=== PATIENT | female | born 1945 | race Caucasian/White ===

== ENCOUNTER 2021-07-31 07:46 | Outpatient (CLI) | payer OTHER, MEDICARE ==
[~2021-07-31] VITALS: Ht 170.2 cm; Wt 83.0 kg
[2021-07-31 10:01] LABS: BILIRUBIN,URINE NEGATIVE (NEGATIVE); BLOOD, URINE 1+ (NEGATIVE); CLARITY/URINE CLOUDY (CLEAR); COLOR,URINE YELLOW (YELLOW); GLUCOSE,URINE NEGATIVE (NEGATIVE); KETONES,URINE NEGATIVE (NEGATIVE); LEUKOCYTE ESTERASE ,URINE 2+ (NEGATIVE); NITRITE, URINE POSITIVE (NEGATIVE); PROTEIN URINE 2+ (NEGATIVE); UROBILINOGEN,URINE 0.2 (0.2-1.0)
[2021-07-31 10:12] LABS: BASOPHILS % (AUTO) 0.3 % (0.0-2.0); EOSINOPHILS # (AUTO) 0.4 K/uL (0.0-0.4); EOSINOPHILS % (AUTO) 4.3 % (0.0-4.0); HEMATOCRIT 36.9 % (36-48); HEMOGLOBIN 12.2 g/dL (12.0-16.0); LYMPHOCYTES # (AUTO) 1.6 K/uL (1.0-5.5); LYMPHOCYTES % (AUTO) 16.6 % (20.5-51.5); MEAN CORPUSCULAR HEMOGLOBIN 28 pg (27-31); MEAN CORPUSCULAR HGB CONC 33 % (32-36); MEAN CORPUSCULAR VOLUME 84 fL (79.0-98.0); MONOCYTES # (AUTO) 0.7 K/uL (0.0-1.0); MONOCYTES % (AUTO) 6.7 % (1.7-9.3); NEUTROPHILS % (AUTO) 72.1 % (40.0-70.0); PLATELET COUNT (AUTO) 228 K/uL (130-430); RED BLOOD CELL COUNT(AUTO) 4.38 MIL/uL (4.2-6.2); RED CELL DISTRIBUTION WIDTH 13.9 % (9.0-15.0); WHITE BLOOD COUNT (AUTO) 9.7 K/uL (4.8-10.8)
[2021-07-31 10:21] LABS: BACTERIA,URINE MANY /HPF (None Seen); MUCUS,URINE 1+ /LPF (None Seen)
[2021-07-31 10:22] LABS: ALANINE AMINOTRANSFERASE 17 U/L (12-78); ALBUMIN 3.8 g/dL (3.4-4.8); ANION GAP 8 (5-15); ASPARTATE AMINOTRANSFERASE 15 U/L (10-37); CALCIUM 9.3 mg/dL (8.4-11.0); CHLORIDE 104 mmol/L (98-107); CREATININE 1.26 mg/dL (0.55-1.30); GLUCOSE 159 mg/dL (70-99); POTASSIUM 4.4 mmol/L (3.5-5.1); SODIUM SERUM 140 mmol/L (136-145); TOTAL BILIRUBIN 0.4 mg/dL (0.0-1.0); UREA NITROGEN, BLOOD 30 mg/dL (8-21)
[2021-07-31 10:28] LABS: INR 0.9 (0.8-1.2); PROTHROMBIN TIME 9.8 SECS (9.5-12.5)
== END 2021-07-31 08:00 | disposition home or self-care (01) ==
LOC: SLB 07:46 → SMU 08-02 07:46 → UNDOADMIN 08-02 07:46 → SLB 08-02 08:00 → UNDODISIN 08-02 08:00 → EDSTATUS 08-02 13:30
PROVIDERS: ATTEND Orthopaedic Surgery
DX: Z01.818 Encounter for other preprocedural examination (principal); M16.11 Unilateral primary osteoarthritis, right hip; I70.0 Atherosclerosis of aorta; Z20.822 Contact with and (suspected) exposure to COVID-19; I49.8 Other specified cardiac arrhythmias; R00.8 Other abnormalities of heart beat; R94.31 Abnormal electrocardiogram [ECG] [EKG]; Z88.0 Allergy status to penicillin; N39.0 Urinary tract infection, site not specified; Z79.899 Other long term (current) drug therapy; Z51.81 Encounter for therapeutic drug level monitoring
CPT/HCPCS: 36415; 71046; 80053; 81000; 85025; 85610; 85730; 86886; 86900; 86901; 87081; 87086; 87635; 93005; U0003

== ENCOUNTER 2021-08-23 07:34 | Inpatient (IN) | payer OTHER, MEDICARE ==
[2021-08-21 09:35] LABS: BASOPHILS % (AUTO) 0.3 % (0.0-2.0); EOSINOPHILS # (AUTO) 0.2 K/uL (0.0-0.4); EOSINOPHILS % (AUTO) 3.2 % (0.0-4.0); HEMATOCRIT 35.5 % (36-48); LYMPHOCYTES # (AUTO) 1.4 K/uL (1.0-5.5); LYMPHOCYTES % (AUTO) 18.4 % (20.5-51.5); MEAN CORPUSCULAR HEMOGLOBIN 28 pg (27-31); MEAN CORPUSCULAR HGB CONC 34 % (32-36); MEAN CORPUSCULAR VOLUME 83 fL (79.0-98.0); MONOCYTES # (AUTO) 0.5 K/uL (0.0-1.0); MONOCYTES % (AUTO) 6.9 % (1.7-9.3); NEUTROPHILS # (AUTO) 5.3 K/uL (1.8-7.7); NEUTROPHILS % (AUTO) 71.2 % (40.0-70.0); PLATELET COUNT (AUTO) 195 K/uL (130-430); RED BLOOD CELL COUNT(AUTO) 4.27 MIL/uL (4.2-6.2); RED CELL DISTRIBUTION WIDTH 14.2 % (9.0-15.0); WHITE BLOOD COUNT (AUTO) 7.5 K/uL (4.8-10.8)
[2021-08-21 10:08] LABS: BILIRUBIN,URINE NEGATIVE (NEGATIVE); BLOOD, URINE 1+ (NEGATIVE); COLOR,URINE YELLOW (YELLOW); GLUCOSE,URINE NEGATIVE (NEGATIVE); KETONES,URINE NEGATIVE (NEGATIVE); LEUKOCYTE ESTERASE ,URINE 1+ (NEGATIVE); NITRITE, URINE NEGATIVE (NEGATIVE); PROTEIN URINE 1+ (NEGATIVE); UROBILINOGEN,URINE 0.2 (0.2-1.0)
[2021-08-21 10:13] LABS: CLARITY/URINE SLIGHTLY HAZY (CLEAR)
[2021-08-21 10:35] LABS: BACTERIA,URINE RARE /HPF (None Seen); MUCUS,URINE 1+ /LPF (None Seen); RBC,URINE 0-3 /HPF (0-3); WBC,URINE 0-3 /HPF (0-3)
[2021-08-21 11:11] LABS: ALANINE AMINOTRANSFERASE 18 U/L (12-78); ALBUMIN 3.5 g/dL (3.4-4.8); ANION GAP 13 (5-15); ASPARTATE AMINOTRANSFERASE 17 U/L (10-37); CALCIUM 9.7 mg/dL (8.4-11.0); CHLORIDE 101 mmol/L (98-107); CREATININE 1.61 mg/dL (0.55-1.30); GLUCOSE 180 mg/dL (70-99); SODIUM SERUM 142 mmol/L (136-145); TOTAL BILIRUBIN 0.4 mg/dL (0.0-1.0); UREA NITROGEN, BLOOD 28 mg/dL (8-21)
[~2021-08-23] VITALS: Ht 170.2 cm; Wt 83.0 kg
[2021-08-23] MEDS ORDERED: METF-518 PO (08:28)
[2021-08-23] MEDS ORDERED: ROSU20TA2 PO (08:30)
[2021-08-23] MEDS ORDERED: LOSA50TA3 PO (08:34)
[2021-08-23] MEDS ORDERED: SSNOVOLOG SUBCUT (08:34)
[2021-08-23] MEDS ORDERED: INSU100V11 SQ (08:34)
[2021-08-23] MEDS ORDERED: OMEP20TA20 PO (08:34)
[2021-08-23] MEDS ORDERED: VITD2000 PO (08:34)
[2021-08-23] MEDS ORDERED: LEVO750T45 PO (08:38)
[2021-08-23] MEDS ORDERED: CELE100C PO (08:38)
[2021-08-23] MEDS ORDERED: SEMA7TAB2 (08:38)
[2021-08-23] MEDS ORDERED: ACETAMINOPHEN I.V. 1000 MG 100 ML IV ONE (09:09)
[2021-08-23] MEDS ORDERED: BUPIVACAINE LIPOSOME/PF 266 MG/20 ML VIAL INFIL ONE (09:09)
[2021-08-23 09:19] LABS: BILIRUBIN,URINE NEGATIVE (NEGATIVE); BLOOD, URINE 1+ (NEGATIVE); CLARITY/URINE CLEAR (CLEAR); COLOR,URINE YELLOW (YELLOW); GLUCOSE,URINE NEGATIVE (NEGATIVE); KETONES,URINE NEGATIVE (NEGATIVE); LEUKOCYTE ESTERASE ,URINE TRACE (NEGATIVE); NITRITE, URINE NEGATIVE (NEGATIVE); PROTEIN URINE TRACE (NEGATIVE); UROBILINOGEN,URINE 0.2 (0.2-1.0)
[2021-08-23 09:34] LABS: BACTERIA,URINE None Seen /HPF (None Seen)
[2021-08-23] MEDS ORDERED: KETOROLAC TROMETHAMINE 30 MG VIAL ONE (09:41)
[2021-08-23] MEDS ORDERED: TRANEXAMIC ACID 1,000 MG/10 ML VIAL ONE (09:41)
[2021-08-23] MEDS ORDERED: MORPHINE SULFATE 10MG/10ML PF AMP ONE (09:41)
[2021-08-23] MEDS ORDERED: METOPROLOL TARTRATE 5 MG/5 ML AMPUL ONE (09:41)
[2021-08-23] MEDS ORDERED: GENTAMICIN 80 mg/ NS 50 mL IVPB IV ONE (09:41)
[2021-08-23] MEDS ORDERED: LR 1,000 ML IV.SOLN IV ONE (09:41)
[2021-08-23] MEDS ORDERED: PROPOFOL 200MG/ 20ML VIAL (DIPRIVAN) IV ONE (09:41)
[2021-08-23] MEDS ORDERED: NS IRRIG SOLN 1000 ML IR ONE (09:41)
[2021-08-23] MEDS ORDERED: BUPIVACAINE /PF 0.75% 10 ML VIAL INJ ONE (09:41)
[2021-08-23] MEDS ORDERED: SUGAMMADEX SODIUM 200 MG/2 ML VIAL IV ONE (09:41)
[2021-08-23] MEDS ORDERED: DESFLURANE 15 MIN GAS INH ONE (09:41)
[2021-08-23] MEDS ORDERED: NS 100 ML BAG ONE (09:41)
[2021-08-23] MEDS ORDERED: ROCURONIUM BROMIDE 10 MG/ML (ZEMURON) ONE (09:41)
[2021-08-23] MEDS ORDERED: ONDANSETRON HCL 4 MG/2 ML VIAL ONE (09:41)
[2021-08-23] MEDS ORDERED: METOCLOPRAMIDE HCL 10 MG/2 ML VIAL IVP PRN (11:00)
[2021-08-23] MEDS ORDERED: MEPERIDINE HCL/PF 25 MG/ML DISP.SYRIN IVP PRN (11:00)
[2021-08-23] MEDS ORDERED: HYDROmorphone 1 MG/ML INJ. CARTRIDGE IVP PRN ×2 (11:00)
[2021-08-23] MEDS ORDERED: NALOXONE HCL 0.4 MG/ML AMP (NARCAN) IVP PRN ×5 (11:00→15:30)
[2021-08-23] MEDS ORDERED: LR 1,000 ML IV SCH (11:00)
[2021-08-23] MEDS ORDERED: DIPHENHYDRAMINE INJ 50 MG/ML VIAL IVP PRN ×2 (11:00→13:30)
[2021-08-23] MEDS ORDERED: ONDANSETRON HCL 4 MG/2 ML VIAL IVP PRN ×2 (11:00→15:30)
[2021-08-23] MEDS ORDERED: ACETAMINOPHEN 325 MG TABLET PO PRN ×2 (13:30→15:30)
[2021-08-23] MEDS ORDERED: DEXTROSE 50% JECT 50 ML DISP.SYRIN IVP PRN (13:45)
[2021-08-23] MEDS ORDERED: GLUCOSE (DEXTROSE) ORAL GEL -Adults PO PRN ×2 (13:45)
[2021-08-23] MEDS ORDERED: D5W 1,000 ML IV PRN ×2 (13:45)
--- NOTE | 2021-08-23 14:22 | NUR ---
CONSULT: POST OP MEDICAL MANAGEMENT DR. BELLA PAGED. DR. BELLA CALLED BACK IMMEDIATELY DR. VALENCIA
[2021-08-23 14:49] VITALS: BP_SYST 100
--- NOTE | 2021-08-23 14:49 | NUR ---
PATIENT CAME FROM OR, BEDSIDE REPORT GIVEN ALL ACRES ASSUMED.
--- NOTE | 2021-08-23 14:54 | NUR ---
Admission Note Received patient from OR, Initial Plan of Care discussed-patient verbalized understanding. Family at bedside. Oriented to room, call light, pain management and safety.
--- NOTE | 2021-08-23 15:15 | NUR ---
CONSULT: SURGERY DOING THE SURGERY RICK TORO [phone] S/W: OFFICE EXCHANGE
--- NOTE | 2021-08-23 15:24 | NUR ---
Patient denies any pain and or discomfort at this time. Patient is AOx4, Sinus, on room air, with equal chest rise and fall. Abd soft and round with hypoactive bowel sounds, ring catheter in place for strict I&O monitoring. Skin is clean, and dry. Surgical dressing in place 20G PIV to left wrist, patent with fluids infusing.
--- NOTE | 2021-08-23 15:24 | NUR ---
and daughter at bedside, all questions answered at this time.
[2021-08-23] MEDS ORDERED: LORazepam 2 MG/ML VIAL IVP PRN (15:30)
[2021-08-23] MEDS ORDERED: MORPHINE 2 MG/ML INJ. SYRINGE IVP PRN ×2 (15:30)
[2021-08-23] MEDS ORDERED: MAGNESIUM SULFATE 50 ML IV PRN (15:30)
[2021-08-23] MEDS ORDERED: ZOLPIDEM TARTRATE 5 MG TABLET PO PRN (15:30)
[2021-08-23] MEDS ORDERED: DOCUSATE SODIUM 100 MG CAPSULE PO PRN (15:30)
[2021-08-23] MEDS ORDERED: MUPIROCIN 2% TOPICAL OINTMENT 22 GM NS PRN (15:30)
[2021-08-23] MEDS ORDERED: POTASSIUM CHLORIDE 20 MEQ TAB.PRT.SR PO PRN (15:30)
--- NOTE | 2021-08-23 15:38 | NUR ---
Episode of emesis x 2, Zofran IVP given.
[2021-08-23] MEDS: CEFAZOLIN 1 GM IVPB PREMIX 50 ML IV SCH ×2 (15:54→23:04)
[2021-08-23] MEDS: INSULIN Lispro 100 UNITS/ML VIAL (humaLOG) SUBCUT SCH (15:55)
[2021-08-23 16:00] VITALS: BP_SYST 115
[2021-08-23 18:28] LABS: HEMATOCRIT 27.9 % (36-48); HEMOGLOBIN 9.1 g/dL (12.0-16.0)
--- NOTE | 2021-08-23 18:57 | NUR ---
CLOSING NOTE: REPORT GIVEN TO NOC RN, ALL CARE ENDORSED.
[2021-08-23 19:40] VITALS: BP_SYST 102
--- NOTE | 2021-08-23 19:40 | NUR ---
PM ASSESSMENT; -Pt is a/ox4, resting in bed. Pt denied any chest pain,pain,sob,or any acute distress. IV site patent, no s/s any infiltration noted. IVF LR @ 100ml/hr. Mcadams cath w/ gravity drains yellow urine output. Pt had s/p rt hip sx with drsg in place with old blood stained noted,no active bleeding noted w/ abductor pillow in place entire time. Pt is able to wiggle woody feet w/o any tingling,numbness, or pain. Discussed poc,all safety measures, pain mgmt, pt verbalized understanding. Call light w/in reach, side rails x3. All safety measures in place. Cont to monitor pt. Addendum: 08/23/21 at 214 by [employer] litigation claim representative CORRECTION- IVF IS NS @ 70ML/HR, NOT LR.
[2021-08-23] MEDS ORDERED: HEPARIN SODIUM,PORCINE 5,000 UNITS/ML VIAL SUBCUT SCH (21:00)
[2021-08-23] MEDS: DOCUSATE SODIUM 100 MG CAPSULE PO SCH (21:00)
[2021-08-23] MEDS: NACL 0.9% 1,000 ML IV SCH (21:04)
--- NOTE | 2021-08-23 22:20 | NUR ---
ROUNDS; -Pt is resting in bed. Pt denied any chest pain,pain,sob,or any acute distress. IV site patent, no s/s any infiltration noted. IVF LR @ 100ml/hr. Mcadams cath w/ gravity drains yellow urine output. Rt hip drsg cdi with old blood stained noted and abductor pillow in place. Call light w/in reach, side rails x3. All safety measures in place. Cont to monitor pt.
--- NOTE | 2021-08-23 22:25 | NUR ---
NOTES; -Pt has a Freestyle Matt implanted on left upper arm. She did her own blood sugar by scanning and it gave LU=[id number], and she gave herself 10 units Levemir subcut of left thigh of her own insulin. She stated," Dr. Call (location director) allows her to administer insulin with her own judgement.
--- NOTE | 2021-08-24 00:15 | NUR ---
ROUNDS; -Pt is resting in bed. No s/s any chest pain,pain,sob,or any acute distress noted. IV site patent, no s/s any infiltration noted. IVF LR @ 100ml/hr. Mcadams cath w/ gravity drains yellow urine output. Rt hip drsg intact with old blood stained noted and abductor pillow in place. Call light w/in reach, side rails x3. All safety measures in place. Cont to monitor pt.
[2021-08-24 01:55] VITALS: BP_SYST 94
--- NOTE | 2021-08-24 02:15 | NUR ---
ROUNDS; -Pt is asleep. No s/s any chest pain,pain,sob,or any acute distress noted. IV site patent, no s/s any infiltration noted. IVF LR @ 100ml/hr. Mcadams cath w/ gravity drains yellow urine output. Rt hip drsg intact with old blood stained noted and abductor pillow in place. Call light w/in reach, side rails x3. All safety measures in place. Cont to monitor pt.
--- NOTE | 2021-08-24 03:50 | NUR ---
ROUNDS; -Pt is asleep. No s/s any chest pain,pain,sob,or any acute distress noted. IV site patent, no s/s any infiltration noted. IVF LR @ 100ml/hr. Mcadams cath w/ gravity drains yellow urine output. abductor pillow in place btw thighs. Call light w/in reach, side rails x3. All safety measures in place. Cont to monitor pt.
[2021-08-24] MEDS: INSULIN Lispro 100 UNITS/ML VIAL (humaLOG) SUBCUT SCH ×2 (06:31→17:00)
[2021-08-24] MEDS: NACL 0.9% 1,000 ML IV SCH ×2 (06:34→21:58)
--- NOTE | 2021-08-24 06:46 | NUR ---
CLOSING NOTES; -Pt awakes, resting in bed. Pt denied any chest pain,pain,sob,or any acute distress entire shift. IV site patent, no s/s any infiltration noted. IVF NS @ 70ml/hr. Mcadams cath w/ gravity drains yellow urine output. Pt had s/p rt hip sx with drsg in place with old blood stained noted,no active bleeding noted w/ abductor pillow in place entire time. Call light w/in reach, side rails x3. All safety measures in place. Pt did her own blood sugar check from Freestyle Matt implanted on left upper arm, [id number]. Pt refused Humalog insulin until breakfast comes. She stated," I ask Dr. Matos to let her to adjust her own insulin sliding scale coverage when he makes rounds today." Will endorse to next nurse to cont care.
[2021-08-24 07:08] LABS: BASOPHILS % (AUTO) 0.1 % (0.0-2.0); EOSINOPHILS # (AUTO) 0.1 K/uL (0.0-0.4); EOSINOPHILS % (AUTO) 1.2 % (0.0-4.0); HEMOGLOBIN 7.8 g/dL (12.0-16.0); LYMPHOCYTES # (AUTO) 0.9 K/uL (1.0-5.5); LYMPHOCYTES % (AUTO) 11.1 % (20.5-51.5); MEAN CORPUSCULAR HEMOGLOBIN 28 pg (27-31); MEAN CORPUSCULAR HGB CONC 34 % (32-36); MEAN CORPUSCULAR VOLUME 83 fL (79.0-98.0); MONOCYTES # (AUTO) 0.7 K/uL (0.0-1.0); MONOCYTES % (AUTO) 8.4 % (1.7-9.3); NEUTROPHILS # (AUTO) 6.3 K/uL (1.8-7.7); NEUTROPHILS % (AUTO) 79.2 % (40.0-70.0); PLATELET COUNT (AUTO) 140 K/uL (130-430); RED BLOOD CELL COUNT(AUTO) 2.77 MIL/uL (4.2-6.2); RED CELL DISTRIBUTION WIDTH 14.4 % (9.0-15.0); WHITE BLOOD COUNT (AUTO) 7.9 K/uL (4.8-10.8)
[2021-08-24 07:29] LABS: ANION GAP 8 (5-15); CALCIUM 8.1 mg/dL (8.4-11.0); CHLORIDE 103 mmol/L (98-107); CREATININE 1.55 mg/dL (0.55-1.30); GLUCOSE 132 mg/dL (70-99); POTASSIUM 4.5 mmol/L (3.5-5.1); SODIUM SERUM 138 mmol/L (136-145); UREA NITROGEN, BLOOD 27 mg/dL (8-21)
--- NOTE | 2021-08-24 07:34 | NUR ---
OPENING NOTE: REPORT RCVD FROM OUTGOING NOC RN, ALL CARES ASSUMED. (ROYCE OJEDA)
[2021-08-24 08:00] VITALS: BP_SYST 108
[2021-08-24] MEDS: DOCUSATE SODIUM 100 MG CAPSULE PO SCH ×2 (08:04→20:37)
[2021-08-24] MEDS: LOSARTAN POTASSIUM 50 MG TABLET (COZAAR) PO SCH (08:05)
[2021-08-24] MEDS: ATORVASTATIN 20 MG TABLET PO SCH (08:05)
[2021-08-24] MEDS: ENOXAPARIN SODIUM 40 MG/0.4 ML SYRINGE SUBCUT SCH (09:44)
[2021-08-24] MEDS: ACETAMINOPHEN 325 MG TABLET PO PRN (11:26)
--- NOTE | 2021-08-24 11:26 | NUR ---
TYLENOL GIVEN FOR RIGHT HIP PAIN 06/20
[2021-08-24 12:00] VITALS: BP_SYST 109
[2021-08-24 16:00] VITALS: BP_SYST 119
[2021-08-24] MEDS: HYDROmorphone 2 MG/ML VIAL IVP PRN (18:40)
--- NOTE | 2021-08-24 18:44 | NUR ---
DILAUDID GIVEN PRN FOR 10/10 RIGHT HIP PAIN.
--- NOTE | 2021-08-24 18:51 | NUR ---
CLOSING NOTE: REPORT GIVEN TO OUT GOING NOC RN, ALL CARES ENDORSED.
[2021-08-24 19:30] VITALS: BP_SYST 99
--- NOTE | 2021-08-24 19:30 | NUR ---
PM ASSESSMENT; -Pt is a/ox4, resting in bed. Pt denied any chest pain,pain,sob,or any acute distress. VSS except low BP=99/49. IV site patent, no s/s any infiltration noted. IVF NS @ 70ml/hr. Mcadams cath w/ gravity drains yellow urine output. Pt had s/p rt hip sx with drsg in place with old blood stained noted,no active bleeding noted w/ abductor pillow in place entire time. Pt is able to wiggle woody feet w/o any tingling,numbness, or pain. Rt lower extremity swollen with pitting + 1. Discussed poc,all safety measures, pain mgmt, pt verbalized understanding. Call light w/in reach, side rails x3. All safety measures in place. Cont to monitor pt.
--- NOTE | 2021-08-24 22:00 | NUR ---
ROUNDS; -Pt awakes, resting in bed. Pt denies any chest pain,pain,sob,or any acute. Pt did own blood sugar check with Free Style Matt, LJ=[id number], she gave 10 units subcut of Levemir. IV site patent, no s/s any infiltration noted. IVF LR @ 100ml/hr. Mcadams cath w/ gravity drains yellow urine output. abductor pillow in place btw thighs. Call light w/in reach, side rails x3. All safety measures in place. Cont to monitor pt. Addendum: 08/24/21 at 2202 by [employer] heavy duty diesel mechanic CORRECTION- NS @ 70ML/HR INSTEAD LR @100ML/HR
--- NOTE | 2021-08-25 00:12 | NUR ---
ROUNDS; -Pt is asleep. No s/s any chest pain,pain,sob,or any acute distress noted. IV site patent, no s/s any infiltration noted. IVF infusing well. Mcadams cath w/ gravity drains yellow urine output. Rt hip drsg intact with old blood stained noted and abductor pillow in place. Call light w/in reach, side rails x3. All safety measures in place. Cont to monitor pt.
[2021-08-25 00:52] VITALS: BP_SYST 112
[2021-08-25] MEDS: HYDROmorphone 2 MG/ML VIAL IVP PRN (02:07)
--- NOTE | 2021-08-25 02:07 | NUR ---
ROUNDS; PAIN MGMT -Pt is c/o rt hip pain sharp 10/10,gave Dilaudid 2mg IVP for pain mgmt, DH=386/56. IV site patent, no s/s any infiltration noted. IVF infusing well. Mcadams cath w/ gravity drains yellow urine output. Rt hip drsg intact with old blood stained noted and abductor pillow in place. Call light w/in reach, side rails x3. All safety measures in place. Cont to monitor pt.
--- NOTE | 2021-08-25 04:15 | NUR ---
ROUNDS; PAIN MGMT -Pt is asleep. IV site patent, no s/s any infiltration noted. IVF infusing well. Mcadams cath w/ gravity drains yellow urine output. Rt hip drsg intact with old blood stained noted and abductor pillow in place btwn thighs. Call light w/in reach, side rails x3. All safety measures in place. Cont to monitor pt. Addendum: 08/25/21 at 0635 by [employer] bread jockey CORRECTION-JUST ROUNDS; NOT PAIN MGMT
[2021-08-25] MEDS: INSULIN Lispro 100 UNITS/ML VIAL (humaLOG) SUBCUT SCH ×2 (06:44→17:00)
--- NOTE | 2021-08-25 06:45 | NUR ---
CLOSING NOTES; -Pt is resting in bed. Pt denied any chest pain,pain,sob,or any acute distress. IV site patent, no s/s any infiltration noted. IVF infusing well. Mcadams cath w/ gravity drains yellow urine output. Pt had s/p rt hip sx with drsg in place with old blood stained noted,no active bleeding noted w/ abductor pillow in place entire time. Call light w/in reach, side rails x3. All safety measures in place. Pt will check her own blood sugar from Freestyle Matt implanted from left upper arm. Will endorse to next nurse to cont care.
[2021-08-25 07:06] LABS: BASOPHILS % (AUTO) 0.2 % (0.0-2.0); EOSINOPHILS # (AUTO) 0.1 K/uL (0.0-0.4); EOSINOPHILS % (AUTO) 1.4 % (0.0-4.0); HEMATOCRIT 23.9 % (36-48); HEMOGLOBIN 7.9 g/dL (12.0-16.0); LYMPHOCYTES # (AUTO) 1.1 K/uL (1.0-5.5); LYMPHOCYTES % (AUTO) 12.8 % (20.5-51.5); MEAN CORPUSCULAR HEMOGLOBIN 28 pg (27-31); MEAN CORPUSCULAR HGB CONC 33 % (32-36); MEAN CORPUSCULAR VOLUME 84 fL (79.0-98.0); MONOCYTES # (AUTO) 0.7 K/uL (0.0-1.0); MONOCYTES % (AUTO) 8.6 % (1.7-9.3); NEUTROPHILS # (AUTO) 6.5 K/uL (1.8-7.7); PLATELET COUNT (AUTO) 150 K/uL (130-430); RED BLOOD CELL COUNT(AUTO) 2.85 MIL/uL (4.2-6.2); RED CELL DISTRIBUTION WIDTH 14.5 % (9.0-15.0); WHITE BLOOD COUNT (AUTO) 8.4 K/uL (4.8-10.8)
[2021-08-25 07:07] LABS: ANION GAP 6 (5-15); CALCIUM 8.2 mg/dL (8.4-11.0); CHLORIDE 103 mmol/L (98-107); CREATININE 1.47 mg/dL (0.55-1.30); GLUCOSE 159 mg/dL (70-99); POTASSIUM 4.3 mmol/L (3.5-5.1); SODIUM SERUM 136 mmol/L (136-145); UREA NITROGEN, BLOOD 19 mg/dL (8-21)
--- NOTE | 2021-08-25 07:30 | NUR ---
RECEIVED PT FROM NIGHTSHIFT RN. PT A/O X4. ABLE TO MAKE NEEDS KNOWN. DENIES PAIN AT THIS TIME. NO SOB OR RESPIRATORY DISTRESS. ON RA. GRIFFITH VIA GRAVITY. L WRIST #20. NS @ 70 ML/HR. S/P R HIP REPLACEMENT. GOOD C/S/M OF BILATERAL LOWER EXTREMITY. ON BEDREST. ICE PACK PROVIDED FOR PATIENT FOR RLE. NEEDS ALL MET AT THIS TIME. SAFETY MEASURES IN PLACE. WILL CONTINUE TO MONITOR CLOSELY.
--- NOTE | 2021-08-25 07:45 | NUR ---
PT CHECKS OWN BLOOD GLUCOSE THROUGH FREESTYLE IDALMIS IMPLANTED ON ESTEVAN. BLOOD GLUCOSE READS 158 AND PT SELF INJECTED 10 UNITS OF HUMALOG. CLEARED FROM MD FOR PT TO DO OWN BLOOD SUGAR CHECK AND SELF ADMINISTER HER OWN MEDICATIONS.
[2021-08-25 08:00] VITALS: BP_SYST 130
[2021-08-25] MEDS ORDERED: ACETAMINOPHEN 325 MG TABLET PO PRN (08:00)
[2021-08-25] MEDS: ATORVASTATIN 20 MG TABLET PO SCH (09:00)
[2021-08-25] MEDS: metFORMIN HCL 500 MG TABLET PO SCH ×2 (09:00→21:00)
[2021-08-25] MEDS: DOCUSATE SODIUM 100 MG CAPSULE PO SCH ×2 (09:00→21:00)
[2021-08-25] MEDS: LOSARTAN POTASSIUM 50 MG TABLET (COZAAR) PO SCH (09:00)
[2021-08-25] MEDS: ENOXAPARIN SODIUM 40 MG/0.4 ML SYRINGE SUBCUT SCH (10:04)
[2021-08-25] MEDS: HYDROcodone/ACETAMIN 5-325 MG TAB (NORCO/ VICODIN) PO PRN ×3 (10:06→20:20)
--- NOTE | 2021-08-25 10:30 | NUR ---
PRN PAIN MED GIVEN. 9/10 PAIN, ACHING ON R HIP. PT COMPLETED 100% OF BREAKFAST. PROVIDED EXTRA ICE PACKS FOR PT. NEEDS ALL MET. SAFETY MEASURES IN PLACE.
[2021-08-25] MEDS: NACL 0.9% 1,000 ML IV SCH (10:39)
[2021-08-25 12:00] VITALS: BP_SYST 128
--- NOTE | 2021-08-25 12:30 | NUR ---
PT CHECKS OWN BLOOD GLUCOSE THROUGH FREESTYLE IDALMIS IMPLANTED ON ESTEVAN. BLOOD GLUCOSE READS 137 AND PT SELF INJECTED 10 UNITS OF HUMALOG.
[2021-08-25 16:00] VITALS: BP_SYST 109
--- NOTE | 2021-08-25 17:00 | NUR ---
PT IN NO DISTRESS. NO SOB OR RESPIRATORY DISTRESS. ON RA. 0/10 PAIN. STATES NORCO HELPS WITH THE PAIN. VSS. PT SELF CHECKS BLOOD GLUCOSE THROUGH FREESTYLE IDALMIS IMPLANTED ON ESTEVAN. BLOOD GLUCOSE READS 152 AND PT SELF INJECTED 10 UNITS OF HUMALOG. HOB ELEVATED. LINENS CHANGED. GRIFFITH VIA GRAVITY WITH YELLOW CLEAR URINE. 1200 ML OUT. RLE WITH GOOD C/S/M. COLD PACKS APPLIED TO RLE. ABDUCTION PILLOW IN PLACE. NEEDS ALL MET. SAFETY MEASURES IN PLACE. CALL LIGHT/ITEMS WITHIN REACH. HOURLY ROUNDS CONDUCTED.
--- NOTE | 2021-08-25 19:17 | NUR ---
REPORT GIVEN TO NIGHTSHIFT RN FOR CONTINUITY OF CARE.
--- NOTE | 2021-08-25 19:30 | NUR ---
Opening note Patient is awake, AOx4 resting in bed, no distress. Breathing is nonlabored, symmetrical rise and fall of chest. Skin is warm dry. IVF infusing via IV to left hand. She has ring catheter drainage bag to gravity. Incision site dressing is dry with minimal amount of dry blood noted on lower edge of dressing. SCD's on and adductor pillow in place. Bed is locked in lowest position, side rails up 3x, bed alarm on and call light w/in reach. Updated board.
[2021-08-25 20:00] VITALS: BP_SYST 117
--- NOTE | 2021-08-25 20:20 | NUR ---
Wilda Patient reporting severe pain to right hip. [place] (3-083) 2 tabs given for severe pain as ordered. Also applied ice to right hip/thigh/leg.
--- NOTE | 2021-08-25 20:25 | NUR ---
Meds Patient has two meds scheduled - Colace and Metformin. She refused Colace stating that she does not want to have a bowel movement while in bed and is concerned about pain. I provided education regarding pain meds; constipation side effect and she verbalized understanding, stating she is aware and will start taking Colace once she is up with PT. She also refused Metformin stating that she took tablet earlier with dinner.
--- NOTE | 2021-08-25 20:35 | NUR ---
Dr. Haley / ring catheter Patient was informed Ring catheter is to be removed on 2nd day post op per doctor's order. She refused and asked if she can keep Ring during night and wants to wait till morning d/t pain and frequency of bed sams use. I paged and spoke with Dr. Haley and she said it was ok to leave Ring catheter on one more night, TORB
[2021-08-26 01:07] VITALS: BP_SYST 118
[2021-08-26] MEDS: NACL 0.9% 1,000 ML IV SCH ×2 (01:33→15:42)
--- NOTE | 2021-08-26 01:36 | NUR ---
IVF, rounds IVF empty and hung new bag of Normal saline; infusing as ordered, infusing well, no sign of infiltration noted. Patient presently denies pain. She was encouraged to reposition and reports she has been moving - self positioning as tolerated. Replaced ice pack to right leg. No further needs, call light w/in reach.
--- NOTE | 2021-08-26 05:30 | NUR ---
rounds, bed bath Patient was provided w/bed bath, new gown and linens.
[2021-08-26] MEDS: HYDROcodone/ACETAMIN 5-325 MG TAB (NORCO/ VICODIN) PO PRN (05:33)
--- NOTE | 2021-08-26 05:33 | NUR ---
Wilda Patient reporting severe pain to right hip. [place] (4-129) 2 tabs given for severe pain as ordered along w/ ice packs to right hip/thigh.
[2021-08-26 06:27] LABS: BASOPHILS % (AUTO) 0.2 % (0.0-2.0); EOSINOPHILS # (AUTO) 0.2 K/uL (0.0-0.4); HEMATOCRIT 23.4 % (36-48); HEMOGLOBIN 7.8 g/dL (12.0-16.0); LYMPHOCYTES % (AUTO) 13.1 % (20.5-51.5); MEAN CORPUSCULAR HEMOGLOBIN 28 pg (27-31); MEAN CORPUSCULAR HGB CONC 33 % (32-36); MEAN CORPUSCULAR VOLUME 84 fL (79.0-98.0); MONOCYTES # (AUTO) 0.6 K/uL (0.0-1.0); MONOCYTES % (AUTO) 8.3 % (1.7-9.3); NEUTROPHILS # (AUTO) 5.6 K/uL (1.8-7.7); NEUTROPHILS % (AUTO) 76.4 % (40.0-70.0); PLATELET COUNT (AUTO) 155 K/uL (130-430); RED CELL DISTRIBUTION WIDTH 14.8 % (9.0-15.0); WHITE BLOOD COUNT (AUTO) 7.4 K/uL (4.8-10.8)
[2021-08-26 06:46] LABS: ANION GAP 9 (5-15); CALCIUM 8.3 mg/dL (8.4-11.0); CHLORIDE 102 mmol/L (98-107); CREATININE 1.38 mg/dL (0.55-1.30); GLUCOSE 159 mg/dL (70-99); POTASSIUM 3.5 mmol/L (3.5-5.1); SODIUM SERUM 136 mmol/L (136-145); UREA NITROGEN, BLOOD 17 mg/dL (8-21)
[2021-08-26] MEDS: INSULIN Lispro 100 UNITS/ML VIAL (humaLOG) SUBCUT SCH ×2 (06:59→18:26)
--- NOTE | 2021-08-26 07:02 | NUR ---
Closing note Patient is awake, AOx4 resting in bed, no distress and presently denies pain. IVF infusing via IV to left hand. She has ring catheter drainage bag to gravity. Incision site dressing remains dry with minimal amount of dry blood noted on lower edge of dressing. SCD's on and adductor pillow in place. Bed is locked in lowest position, side rails up 3x, bed alarm on and call light w/in reach. Will endorse care to day shift nurse.
[2021-08-26 08:00] VITALS: BP_SYST 115
[2021-08-26 08:28] VITALS: BP_SYST 118
[2021-08-26] MEDS: metFORMIN HCL 500 MG TABLET PO SCH ×2 (09:00→21:18)
[2021-08-26] MEDS: ATORVASTATIN 20 MG TABLET PO SCH (09:00)
[2021-08-26] MEDS: DOCUSATE SODIUM 100 MG CAPSULE PO SCH ×2 (09:00→21:18)
[2021-08-26] MEDS: LOSARTAN POTASSIUM 50 MG TABLET (COZAAR) PO SCH (09:00)
[2021-08-26] MEDS: ENOXAPARIN SODIUM 40 MG/0.4 ML SYRINGE SUBCUT SCH (09:00)
--- NOTE | 2021-08-26 09:00 | NUR ---
pt refused medications stating she had already taken her morning medications. she then showed me a week long pill box that was filled with medications. she explained that she was administering her necessary medications from home because the hospital had "screwed up". I asked her more about what she had taken and she told me metormin, losartan, vitamin d3, novalog and rybelsus. she stated that she had cleared it with the drs and other nurses. I stated that I wanted her to get the medication she need and wanted her to be safe and but all medications needed to be administered per hospital protocol. She said that it was ok and that the nurses and dr has said it was ok. I escalated this to charge nurse Kassy and accompanied her to bedside to continue discussions with the patient. While at bedside, Dr. Matos, arrived to assess patient. He spoke to her and state that he would fix her medication administration schedule making sure that the correct medications, doses, and timing from her home medication list would be administered. 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 Addendum: 08/26/21 at 1216 by [employer] [address] Dr. Matos said to keep ring in place until tomorrow after patient requested to keep ring due to high frequency urination
[2021-08-26 12:00] VITALS: BP_SYST 113
--- NOTE | 2021-08-26 12:16 | NUR ---
pt requesting insulin with lunch arrival, has not changed orders as he stated, md cai paged.
--- NOTE | 2021-08-26 12:16 | NUR ---
Discharge Planning: DCP faxed pt referral to [facility] P#[phone] DCP to follow up. Addendum: 08/26/21 at 1336 by Melissa Crenshaw DP Esther will come do a assessment on patient. Addendum: 08/26/21 at 1514 by Melissa Crenshaw DP [facility] P#[phone] accepted pt to Rm 226 DCP made CM aware.
--- NOTE | 2021-08-26 12:46 | NUR ---
Spoke to patient about her DC plan. She stated she is not feeling safe to go home w/ her daughter. She will be staying with her daughter at [address] [place], [place] [address] [address]- She would like [facility] [phone]. She has a FWW for mobility. She agreed to go to SNF for rehab. She would like to go to [facility]. I spoke to Dr Matos and requested a DC to SNF. He stated he will see the patient this PM, after PT, and decide for home vs SNF placement for the patient. I spoke w/ Shola in PT. He will see the patient for PT for the second time today, after lunch.
[2021-08-26] MEDS: ONDANSETRON 4 MG ODT TAB PO PRN (13:14)
[2021-08-26] MEDS ORDERED: LOVI40 SUBCUT (14:54)
--- NOTE | 2021-08-26 15:44 | NUR ---
Spoke to patient and her daughter. Patient is complaining of pain and nausea and Dr Matos stated she can stay in the hospital until tomorrow.
[2021-08-26 16:00] VITALS: BP_SYST 131
[2021-08-26 20:00] VITALS: BP_SYST 109
[2021-08-26] MEDS: INSULIN GLARGINE 100 UNITS/ML 10 ML VIAL SUBCUT SCH (21:27)
[2021-08-27] VITALS: BP_SYST 110
[2021-08-27] MEDS: ONDANSETRON 4 MG ODT TAB PO PRN ×2 (00:41→08:23)
[2021-08-27] MEDS: HYDROcodone/ACETAMIN 5-325 MG TAB (NORCO/ VICODIN) PO PRN ×4 (00:42→22:22)
[2021-08-27] MEDS: NACL 0.9% 1,000 ML IV SCH (06:03)
[2021-08-27 06:28] LABS: BASOPHILS % (AUTO) 0.3 % (0.0-2.0); EOSINOPHILS # (AUTO) 0.2 K/uL (0.0-0.4); EOSINOPHILS % (AUTO) 2.1 % (0.0-4.0); HEMOGLOBIN 7.3 g/dL (12.0-16.0); LYMPHOCYTES # (AUTO) 1.1 K/uL (1.0-5.5); LYMPHOCYTES % (AUTO) 14.6 % (20.5-51.5); MEAN CORPUSCULAR HEMOGLOBIN 28 pg (27-31); MEAN CORPUSCULAR HGB CONC 34 % (32-36); MEAN CORPUSCULAR VOLUME 83 fL (79.0-98.0); MONOCYTES # (AUTO) 0.7 K/uL (0.0-1.0); MONOCYTES % (AUTO) 9.5 % (1.7-9.3); NEUTROPHILS # (AUTO) 5.5 K/uL (1.8-7.7); NEUTROPHILS % (AUTO) 73.5 % (40.0-70.0); PLATELET COUNT (AUTO) 163 K/uL (130-430); RED BLOOD CELL COUNT(AUTO) 2.61 MIL/uL (4.2-6.2); RED CELL DISTRIBUTION WIDTH 14.3 % (9.0-15.0); WHITE BLOOD COUNT (AUTO) 7.5 K/uL (4.8-10.8)
[2021-08-27 06:38] LABS: ANION GAP 7 (5-15); CALCIUM 8.9 mg/dL (8.4-11.0); CHLORIDE 99 mmol/L (98-107); CREATININE 1.26 mg/dL (0.55-1.30); GLUCOSE 152 mg/dL (70-99); POTASSIUM 3.9 mmol/L (3.5-5.1); SODIUM SERUM 134 mmol/L (136-145); UREA NITROGEN, BLOOD 15 mg/dL (8-21)
[2021-08-27 07:24] LABS: HEMATOCRIT 21.6 % (36-48)
[2021-08-27 08:00] VITALS: BP_SYST 121
--- NOTE | 2021-08-27 08:00 | NUR ---
Opening Notes Patient is awake, alert and oriented x4. No resp distress noted. Breathing is even and unlabored. Pt is agitated with multiple complaints. Per patient "I need my Prilosec! And I need my insulin! I have been getting horrible service ever since I got here. Its ridiculous! Im going to get nauseated and throw up. I get dizzy and they want me to go home?! I cant even stand up. They need to do something about this catheter because I want to sit on the commode." Nurse educated patient that she will follow up with the MD. IV site on left wrist 20 gauge intact, saline lock. FC draining by gravity, yellow and clear urine. All needs met at this time. Safety and fall precautions in place. Bed in lowest position, alarm on, locked. Will continue to monitor.
[2021-08-27] MEDS: DOCUSATE SODIUM 100 MG CAPSULE PO SCH ×2 (08:11→21:06)
[2021-08-27] MEDS: ATORVASTATIN 20 MG TABLET PO SCH (08:11)
[2021-08-27] MEDS: metFORMIN HCL 500 MG TABLET PO SCH ×2 (08:12→21:00)
[2021-08-27] MEDS: LOSARTAN POTASSIUM 50 MG TABLET (COZAAR) PO SCH (08:12)
[2021-08-27] MEDS: INSULIN Lispro 100 UNITS/ML VIAL (humaLOG) SUBCUT SCH ×2 (08:13→17:55)
[2021-08-27] MEDS: ENOXAPARIN SODIUM 40 MG/0.4 ML SYRINGE SUBCUT SCH (08:14)
--- NOTE | 2021-08-27 08:30 | NUR ---
Daughter by bedside. Updated her on patient status and plan of care.
[2021-08-27 12:00] VITALS: BP_SYST 117
--- NOTE | 2021-08-27 12:00 | NUR ---
Notes Patient is awake, alert and oriented x4. No resp distress noted. Breathing is even and unlabored. Pt is being seen and examined by PHYSICAL THERAPY. Reports feeling "dizzy" upon sitting and standing. Nurse educated pt on medication: Meclizine for dizziness/vertigo. Pt initially refused request for medication but later agreed to medication. Nurse s/w Dr. Cueva and obtained new orders for Meclizine. Noted and carried out. Pt is also requesting a fleet enema. Reports no BM for 5 days. Received orders, will administer after lunch.
[2021-08-27 12:05] VITALS: BP_SYST 103
[2021-08-27] MEDS ORDERED: MECL-225 PO (12:15)
[2021-08-27] MEDS ORDERED: MECLIZINE HCL 25 MG TABLET (ANITVERT) PO ONE (12:15)
[2021-08-27] MEDS ORDERED: SODIUM PHOSPHATE,MONO-DIBASIC 133 ML ENEMA RC ONE (13:00)
[2021-08-27] MEDS ORDERED: OMEPRAZOLE Non-Formulary 20 MG CAPSULE.DR PO SCH (13:30)
[2021-08-27] MEDS ORDERED: PANTOPRAZOLE SODIUM 40 MG TAB PO ONE (13:45)
--- NOTE | 2021-08-27 15:14 | NUR ---
Spoke with patient. She is refusing to discharge to home or SNF. She stated she may leave tomorrow if she was no longer dizzy, and she may go home.
--- NOTE | 2021-08-27 16:00 | NUR ---
Notes Patient is laying in bed, resting at this time. No resp distress ntoed. Breathing is even and unlabored. Pt is c/o 5/10 right hip pain. Pt was repositioned in bed. Dressing on right hip is slightly saturated. Will continue to monitor.
--- NOTE | 2021-08-27 18:55 | NUR ---
Closing Notes Patient is awake, alert and oriented x4. Daughter by bedside. No resp distress noted. Breathing is even and unlabored, RA. Pt is denying any signs of dizziness at this time. Pt reports milf pain at this time., 08/20. IV site on left wrist 20 gauge intact, saline. Refusing IVF. FC draining by gravity, yellow and clear urine. BSC at bedside. All needs met at this time. Safety and fall precautions in place. Bed in lowest position, alarm on, locked. Will continue to monitor.
--- NOTE | 2021-08-27 19:38 | NUR ---
Opening note Patient is awake, AOx4 resting in bed, no distress. Breathing is nonlabored on room air. IV to left hand is saline locked. She has ring catheter drainage bag to gravity. Incision site dressing is dry with minimal amount of dry blood noted on edge of dressing. . Bed is locked in lowest position, side rails up, bed alarm on and call light w/in reach.
[2021-08-27 20:15] VITALS: BP_SYST 121
--- NOTE | 2021-08-27 20:58 | NUR ---
Dr. Matos rounds Dr. Matos at bedside to see patient. He informed he will be back tomorrow (noon, afternoon) to change dressing.
[2021-08-27] MEDS: MECLIZINE HCL 25 MG TABLET (ANITVERT) PO SCH (21:03)
[2021-08-27] MEDS: INSULIN GLARGINE 100 UNITS/ML 10 ML VIAL SUBCUT SCH (21:09)
--- NOTE | 2021-08-27 22:25 | NUR ---
Wilda Patient reporting severe pain to right hip. [place] (4-814) 2 tabs given for severe pain as ordered, wctm
[2021-08-28] MEDS: HYDROcodone/ACETAMIN 5-325 MG TAB (NORCO/ VICODIN) PO PRN (06:08)
--- NOTE | 2021-08-28 06:09 | NUR ---
[place], bed sams Patient reporting severe pain, 8/10 and [place] given for severe pain as ordered. Patient requested bed sams; only had very small amount of watery-clear -mucous consistency stool. She was repositioned, provided with new pad, sheet.
[2021-08-28 06:48] LABS: BASOPHILS % (AUTO) 0.3 % (0.0-2.0); EOSINOPHILS # (AUTO) 0.3 K/uL (0.0-0.4); EOSINOPHILS % (AUTO) 4.6 % (0.0-4.0); HEMOGLOBIN 7.4 g/dL (12.0-16.0); LYMPHOCYTES # (AUTO) 1.5 K/uL (1.0-5.5); LYMPHOCYTES % (AUTO) 24.7 % (20.5-51.5); MEAN CORPUSCULAR HEMOGLOBIN 28 pg (27-31); MEAN CORPUSCULAR HGB CONC 34 % (32-36); MEAN CORPUSCULAR VOLUME 83 fL (79.0-98.0); MONOCYTES # (AUTO) 0.6 K/uL (0.0-1.0); MONOCYTES % (AUTO) 10.7 % (1.7-9.3); NEUTROPHILS # (AUTO) 3.6 K/uL (1.8-7.7); NEUTROPHILS % (AUTO) 59.7 % (40.0-70.0); PLATELET COUNT (AUTO) 193 K/uL (130-430); RED BLOOD CELL COUNT(AUTO) 2.63 MIL/uL (4.2-6.2); RED CELL DISTRIBUTION WIDTH 14.8 % (9.0-15.0)
[2021-08-28 07:26] LABS: ANION GAP 8 (5-15); CALCIUM 8.4 mg/dL (8.4-11.0); CHLORIDE 104 mmol/L (98-107); CREATININE 1.37 mg/dL (0.55-1.30); GLUCOSE 107 mg/dL (70-99); POTASSIUM 3.9 mmol/L (3.5-5.1); SODIUM SERUM 140 mmol/L (136-145); UREA NITROGEN, BLOOD 17 mg/dL (8-21)
--- NOTE | 2021-08-28 07:45 | NUR ---
RECEIVED PATIENT FROM PM NURSE, ALERT AND ORIENTED, ABLE TO VERBALIZE NEEDS, NO C/O PAIN OR DISCOMFORT, GRIFFITH DRAINING CLEAR YELLOW URINE, NO SOB OBSERVED, WILL ASSUME ALL CARE OF PATIENT
[2021-08-28 08:00] VITALS: BP_SYST 120
[2021-08-28] MEDS: INSULIN Lispro 100 UNITS/ML VIAL (humaLOG) SUBCUT SCH ×2 (08:03→17:00)
[2021-08-28 08:26] LABS: HEMATOCRIT 21.9 % (36-48)
[2021-08-28] MEDS ORDERED: APIX2.5T PO (08:44)
[2021-08-28] MEDS ORDERED: HYDR-3919 PO (08:47)
[2021-08-28] MEDS: DOCUSATE SODIUM 100 MG CAPSULE PO SCH ×2 (08:51→21:39)
[2021-08-28] MEDS: MECLIZINE HCL 25 MG TABLET (ANITVERT) PO SCH ×3 (08:51→21:39)
[2021-08-28] MEDS: PANTOPRAZOLE SODIUM 40 MG TAB PO SCH (08:51)
[2021-08-28] MEDS: metFORMIN HCL 500 MG TABLET PO SCH ×2 (08:52→21:00)
[2021-08-28] MEDS: ATORVASTATIN 20 MG TABLET PO SCH (08:52)
[2021-08-28] MEDS: LOSARTAN POTASSIUM 50 MG TABLET (COZAAR) PO SCH (08:53)
[2021-08-28] MEDS: ENOXAPARIN SODIUM 40 MG/0.4 ML SYRINGE SUBCUT SCH (09:00)
[2021-08-28 11:27] VITALS: BP_SYST 105
--- NOTE | 2021-08-28 15:02 | NUR ---
PATIENT'S FUNCTIONAL MOBILITY IS LIMITED BY HER C/O DIZZINESS WHICH SHE BELIEVES IS CAUSED BY NORCO. NURSING MAY ASSIST THE PATIENT OUT OF BED TO USE THE COMMODE. USE THE FWW. AND OBSERVE THR PRECAUTIONS.
--- NOTE | 2021-08-28 15:25 | NUR ---
patient refused meclizine at this time, states she feels over medicated and will take her pm dose
[2021-08-28 15:35] VITALS: BP_SYST 111
--- NOTE | 2021-08-28 15:46 | NUR ---
SPOKE TO DR. PINA, INFORMED HIM OF PATIENTS HGB 7.4, ORDERS OBTAINED FOR 2 UNITS OF PRBC, TYPE CROSS AND MATCH, AND H&H TO BE DONE IN AM,
--- NOTE | 2021-08-28 17:00 | NUR ---
PATIENT REFUSED INSULIN AT THIS TIME, BLOOD SUGAR 163
--- NOTE | 2021-08-28 18:05 | NUR ---
PATIENT HAS FLUID FILLED BLISTER OPENED, CLEANED WITH NS AND APPLIED OPTIFOAM
[2021-08-28 20:00] VITALS: BP_SYST 113
[2021-08-28] MEDS: INSULIN GLARGINE 100 UNITS/ML 10 ML VIAL SUBCUT SCH (21:44)
[2021-08-28 23:10] VITALS: BP_SYST 118
--- NOTE | 2021-08-29 01:20 | NUR ---
BT INITIATION: Consent signed per patient agreeing to administration of blood. Blood has been type and crossmatched. Blood picked up from blood bank. Information on unit of blood checked against patient wristband at bedside by two nurses. All information matches. Patient or responsible libertarian informed of potential complications associated with blood transfusion. Informed of possible transfusion reaction symptoms. Aware of need to notify nurse at once of itching, shortness of breath, flushing, feeling of impending doom, or other symptoms not previously present. Vital signs taken within 5 minutes prior to initiation of transfusion. RN will remain with patient for first 15 minutes of transfusion at which time vital signs will be re-assessed.
--- NOTE | 2021-08-29 02:25 | NUR ---
rounds, BT in progress Patient is resting in comfortable position. Blood transfusion in progress and she denies any reaction or discomfort, wctm
--- NOTE | 2021-08-29 05:43 | NUR ---
BT complete Patient is resting eyes closed, easy to awaken. She denies any reaction and reports she feels ok.
[2021-08-29] MEDS: ENOXAPARIN SODIUM 40 MG/0.4 ML SYRINGE SUBCUT SCH (08:37)
[2021-08-29] MEDS: INSULIN Lispro 100 UNITS/ML VIAL (humaLOG) SUBCUT SCH ×2 (08:37→18:07)
[2021-08-29] MEDS: metFORMIN HCL 500 MG TABLET PO SCH ×2 (08:38→20:11)
[2021-08-29] MEDS: PANTOPRAZOLE SODIUM 40 MG TAB PO SCH (08:38)
[2021-08-29] MEDS: ATORVASTATIN 20 MG TABLET PO SCH (08:38)
[2021-08-29] MEDS: LOSARTAN POTASSIUM 50 MG TABLET (COZAAR) PO SCH (08:39)
[2021-08-29] MEDS: MECLIZINE HCL 25 MG TABLET (ANITVERT) PO SCH ×3 (08:39→20:11)
[2021-08-29] MEDS: DOCUSATE SODIUM 100 MG CAPSULE PO SCH ×2 (09:00→20:12)
[2021-08-29 09:05] LABS: BASOPHILS % (AUTO) 0.2 % (0.0-2.0); EOSINOPHILS # (AUTO) 0.3 K/uL (0.0-0.4); EOSINOPHILS % (AUTO) 4.1 % (0.0-4.0); HEMATOCRIT 27.9 % (36-48); HEMOGLOBIN 9.5 g/dL (12.0-16.0); LYMPHOCYTES # (AUTO) 1.1 K/uL (1.0-5.5); LYMPHOCYTES % (AUTO) 15.3 % (20.5-51.5); MEAN CORPUSCULAR HEMOGLOBIN 29 pg (27-31); MEAN CORPUSCULAR HGB CONC 34 % (32-36); MEAN CORPUSCULAR VOLUME 84 fL (79.0-98.0); MONOCYTES # (AUTO) 0.8 K/uL (0.0-1.0); MONOCYTES % (AUTO) 11.5 % (1.7-9.3); NEUTROPHILS % (AUTO) 68.9 % (40.0-70.0); PLATELET COUNT (AUTO) 221 K/uL (130-430); RED BLOOD CELL COUNT(AUTO) 3.31 MIL/uL (4.2-6.2); RED CELL DISTRIBUTION WIDTH 14.7 % (9.0-15.0); WHITE BLOOD COUNT (AUTO) 7.2 K/uL (4.8-10.8)
[2021-08-29 11:34] VITALS: BP_SYST 120
[2021-08-29 12:37] VITALS: BP_SYST 120
[2021-08-29] MEDS: ACETAMINOPHEN 325 MG TABLET PO PRN (12:49)
[2021-08-29 15:34] VITALS: BP_SYST 104
--- NOTE | 2021-08-29 16:25 | NUR ---
Discharge Planning: DCP faxed pt referral to [facility] P#[phone] F#[phone] DCP also gave [place] [address] [place] [address] P# [phone] DCP to follow up
[2021-08-29 16:41] VITALS: BP_SYST 118
--- NOTE | 2021-08-29 17:40 | NUR ---
Dietitian Recommendations * [facility] diet, Anurag BID (supplement yield 180 kcal/day, 5 gm protein/day) KARSON BOYLE Please refer to Nutrition Assessment for details. Addendum: 08/30/21 at [address] Amended: Links added.
--- NOTE | 2021-08-29 19:48 | NUR ---
0800: PATIENT IS AWAKE, ALERT, ORIENTED X 3 TO NAME, PERSON, AND PLACE. RESPIRATION EVEN AND UNLABORED NO S/S OF ANY ACUTE DISTRESS NOTED. ABLE TO VERBALIZE NEEDS NO C/O ANY PAIN OR DISCOMFORT @ THIS TIME. ABDOMEN SOFT AND NON-DISTENDED, POSITIVE BOWEL SOUND X 4 NO N/V OR DIARRHEA NOTED. SKIN WARM AND DRY INTACT, S/P RIGHT HIP SURGERY WITH DRESSING INTACT W/O ANY BLEEDING OR DISCHARGE NOTED. BILATERAL PEDAL PULSES PALPABLE 1900: MEDICATED PATIENT FOR PAIN X 1 WITH TYLENOL EFFECTIVE. VS STABLE, AFEBRILE, ORDER FOR DIET WAS CHANGED BY DIETITIAN TO INCREASE MORE FREEDOM OF CHOICE OF FOOD TO STIMULATE MORE APPETITE. HGB WAS 7.4, 1UNIT OF PRBC WAS ADMINISTERED BY NOC SHIFT NURSE AND REDRAW HGB WAS 9.4 . NO NEED FOR 2ND UNIT. PATIENT REQUEST ORDER FOR FLEET ENEMA. ENDORSE TO PM SHIFT NURSE
[2021-08-29 20:00] VITALS: BP_SYST 118
[2021-08-29] MEDS: INSULIN GLARGINE 100 UNITS/ML 10 ML VIAL SUBCUT SCH (20:47)
--- NOTE | 2021-08-29 22:45 | NUR ---
Patient in bed. Assisted patient to the bedside commode. No acute distress noted. Will continue to monitor.
[2021-08-30 00:32] VITALS: BP_SYST 111
[2021-08-30 07:50] VITALS: BP_SYST 107
--- NOTE | 2021-08-30 07:50 | NUR ---
Note Patient is laying in bed awake. No apparent distress noted. A/O x4. Vitals as charted. Call light within reach. Safety and fall precautions in place. All needs met.
[2021-08-30] MEDS: MECLIZINE HCL 25 MG TABLET (ANITVERT) PO SCH ×3 (09:00→20:11)
--- NOTE | 2021-08-30 09:00 | NUR ---
Discharge Planning: [facility] faxed pt referral to [facility] P#[phone] F#[phone] MADELINEP also gave address where patient will be staying at [place] [address] P# [phone]. MADELINEP spoke to Rukhsana patient accepted. Addendum: 08/30/21 at 1203 by Melissa Crenshaw DP Patient still has room pending at [facility] P#[phone] accepted pt to 226. MADELINEP made CM aware facility confirming if patient is coming.
[2021-08-30] MEDS: ATORVASTATIN 20 MG TABLET PO SCH (09:30)
[2021-08-30] MEDS: metFORMIN HCL 500 MG TABLET PO SCH ×2 (09:31→20:10)
[2021-08-30] MEDS: DOCUSATE SODIUM 100 MG CAPSULE PO SCH ×2 (09:32→20:10)
[2021-08-30] MEDS: LOSARTAN POTASSIUM 50 MG TABLET (COZAAR) PO SCH (09:32)
[2021-08-30] MEDS: PANTOPRAZOLE SODIUM 40 MG TAB PO SCH (09:32)
[2021-08-30] MEDS: ENOXAPARIN SODIUM 40 MG/0.4 ML SYRINGE SUBCUT SCH (09:35)
[2021-08-30] MEDS: INSULIN Lispro 100 UNITS/ML VIAL (humaLOG) SUBCUT SCH ×2 (09:38→17:00)
[2021-08-30] MEDS: ACETAMINOPHEN 325 MG TABLET PO PRN (09:56)
--- NOTE | 2021-08-30 10:03 | NUR ---
Paged Doctor Paged Doctor Hammad regarding order for enema or suppository due to constipation.
--- NOTE | 2021-08-30 10:05 | NUR ---
Spoke with Dr. Cueva She will order a fleet enema for patient.
[2021-08-30] MEDS ORDERED: BISACODYL 10 MG/SUPPOSITORY RC ONE (11:00)
[2021-08-30 11:28] VITALS: BP_SYST 113
[2021-08-30 15:39] VITALS: BP_SYST 125
[2021-08-30 16:00] VITALS: BP_SYST 125
--- NOTE | 2021-08-30 18:00 | NUR ---
Note Patient laying in bed watching television. No apparent distress noted. Call light within reach. Safety and fall precautions in place. All needs met.
--- NOTE | 2021-08-30 18:20 | NUR ---
D/C Patient Patient given medication reconciliation form and D/C instructions. Exit Care provided. Patient verbalized understanding. MD discussed with patient the results and treatment provided. Ambulatory with steady gait for discharge to home. Patient in stable condition, ID band removed. IV catheter removed, intact and dressing applied, no active bleeding. Patient educated on pain management. All belongings sent with patient. Patient discharged via wheelchair.
== END 2021-08-30 18:22 | disposition home health service (06) | DRG 469 ==
LOC: SMU 07:34
PROVIDERS: ADMIT General Practice; ATTEND General Practice
PROC: 0SR90JA Replacement of Right Hip Joint with Synthetic Substitute, Uncemented, Open Approach (ICD-10-PCS; principal; 2021-08-23 09:00)
PROC: 30233N1 Transfusion of Nonautologous Red Blood Cells into Peripheral Vein, Percutaneous Approach (ICD-10-PCS; 2021-08-29)
DX: M16.11 Unilateral primary osteoarthritis, right hip (principal); N17.0 Acute kidney failure with tubular necrosis; D62 Acute posthemorrhagic anemia; E55.9 Vitamin D deficiency, unspecified; I10 Essential (primary) hypertension; E78.5 Hyperlipidemia, unspecified; Z20.822 Contact with and (suspected) exposure to COVID-19; K21.9 Gastro-esophageal reflux disease without esophagitis; E66.9 Obesity, unspecified; Z68.28 Body mass index [BMI] 28.0-28.9, adult
CPT/HCPCS: 36415; 72170-TC; 80048; 80053; 81000; 82948; 82962; 83036; 83735; 85018; 85025; 86886; 86900; 86901; 86920; 87081; 87635-QW; 88304; 88305; 88311; 94010; 97110-GP; 97116-GP; 97530-GP; C1713; C1776; C9290; J0131; J0690; J1170; J1200; J1580; J1650; J1815; J1885; J2270; J2274; J2405; J2704; J3490; J7120; J8597; P9021; Q0162; U0003